=== PATIENT | male | born 1960 | race Caucasian/White ===

== ENCOUNTER 2020-11-10 09:28 | Inpatient (IN) | payer BC ==
--- NOTE | 2020-11-14 13:01 | R.PREADM ---
PRE-ADMISSION SCREENING FORM SCREENING DATE AND TIME 11/10/2020 08:25 (CDT) ANTICIPATED REHAB ADMISSION DATE 11/12/2020 REFERRING FACILITY [facility] REFERRAL DATE AND TIME 11/08/2020 08:27 (CDT) REFERRAL OFFICE PHONE [phone] REFERRAL ROOM# [id number] ACUTE ADMIT DATE 11/11/2020 Previous Rehabilitation(s): No. 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 Pavan Mack M.D. MR# [id number] NAME PORTER KITCHEN ADDRESS [address] [place] [address] [place] [address] PHONE ( ZIP [phone] DATE OF 1960 AGE 60 SSN# [id number] GENDER male MARITAL STATUS PREF. LANGUAGE (IF NON-ST LUCIAN) Bahraini ADMIT FROM 02 - [facility] PRE-HOSPITAL LIVING SETTING 01 - Home (private home/apt. board/care, assisted living, prison, transitional living) HOME TYPE AND DETAILS Type of home: single family house # of levels in the residence: 1 # of steps within the residence: 1 # of steps to enter the residence: 2 PRE-HOSPITAL LIVING WITH Family/Relatives FAMILY SUPPORT Yes PRIMARY FAMILY CONTACT NAME LAURIE KITCHEN PRIMARY FAMILY CONTACT PHONE PRIMARY FAMILY CONTACT RELATIONSHIP Spouse PHONE PRIMARY FAMILY CONTACT ON ADM.? no IS PRIMARY FAMILY CONTACT AUTH. REP.? no 1ST EMERGENCY CONTACT LAURIE KITCHEN 1ST CONTACT PHONE 1ST CONTACT RELATIONSHIP Spouse PHONE 1ST CONTACT ON ADM. no IS 1ST CONTACT AUTH. REP.? no PHONE 2ND CONTACT ON ADM.? 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 No ANOTHER [employer] RESPONSIBLE? No PRIMARY REHAB/ACUTE DIAGNOSIS: LUMBAR PLEXUS,PARAPLEGIA, RADICULOPEXONEUROPATHY ONSET DATE 11/04/2020 REHAB IMPAIRMENT CATEGORY (JOSEPHINE): 05 Nontraumatic spinal cord injury (NTSCI) MEETS 60% rule AFFECTED EXTREMITIES: BLE PRIMARY DIAGNOSIS-RELATED SURGERIES: No surgeries related to the primary diagnosis were performed. RISK FOR COMPLICATIONS: - N/A TRIGEMINAL NEURALGIA WEAKNESS AMBULATION DEFICITS BALANCE DEFICITS BILATERAL LEG PAIN SUMMARY OF ACUTE HOSPITALIZATION: Pt. is a 60 yo Right-handed male. On 11/04/2020 he was admitted to [facility] with diagnosis LUMBAR PLEXUS,PARAPLEGIA, RADICULOPE XONEUROPATHY. His impairment category is Spinal Cord Dysfunction 04 - Paraplegia, Unspecified (04.110). Pre-morbidly, Pt. was independent/mod-I in Safety Awareness, Balance, Transfers Control, and Communic ation; and he had good Endurance and Locomotion. Currently, he has deficits of Locomotion, Social Cognition, Safety Awareness, Balance, Transfers Cont rol, Sphincter Control, Self-Care, and Endurance. Pt. is now referred to [facility] for acute in-patient rehabilitation in order to maximize patient's functional independence in activities of daily living, strength, ROM, and mobi lity. Patient has realistic goal of being discharged at assistance level 7-Ind to reside at Home with Fami ly/Relatives. PAST MEDICAL HISTORY Trigeminal neuralgia (G50.0) BILATERAL LEG PAIN WEAKNESS INABILITY TO WALK MEDICATION ALLERGIES: No Known Drug Allergies (NKDA) ENVIRONMENTAL ALLERGIES: - Substance Allergies None Known - Other Allergies None Known CODE STATUS: Full code WEIGHT/HEIGHT/BMI: WEIGHT 209 lbs HEIGHT 5' 8" BMI 31.8 DIET: - Diet Type Regular - Diet - Solid Texture Regular - Diet - Liquid Texture Regular - Tube Feed N/A REVIEW OF SYSTEMS: - Gen Alert and awake Lying in bed No apparent distress Oriented to: person, time, and place - Vital Signs Temperature: 97.7 F SBP/DBP: 124/77 Pulse: 18 Resp: 93 Vital signs stable, afebrile - CVS RRR VITAL SIGNS Temperature: 97.8F SBP/DBP: 124/77 Pulse: 18 Resp: 93 Vital signs stable, afebrile MEDICATIONS/TREATMENT: Other- See attached MAR (Medication Administration Record). CURRENT SPHINCTER CONTROL: Pre-hospital bladder status: unspecified # of bladder accidents in the last 7 days prior to screenin Pre-hospital bowel status: unspecified # of bowel accidents in the last 7 days prior to screenin Last Bowel Movement Date: 11/10/2020 CURRENT LOCOMOTION STATUS: distance walked 25feet WITH ROLLING WALKER DETAILED CURRENT FUNCTIONAL STATUS: - Bladder accident frequency: 7-Ind - No accidents in the past 7 days - Bowel accident frequency: 7-Ind - No accidents in the past 7 days - Walking score based on distance walked: 0(N/A) - Wheelchair score based on distance traveled: 0(N/A) QI SCORES: - Self-Care A. Eating 06-Independent B. Oral hygiene 04-Supervision or touching assistance C. Toileting hygiene 04-Supervision or touching assistance E. Shower/bathe self 88-Not attempted due to medical condition or safety concerns F. Upper body dressing 03-Partial/moderate assistance G. Lower body dressing 03-Partial/moderate assistance H. Putting on/taking off footwear 88-Not attempted due to medical condition or safety concerns - Mobility A. Roll left and right 04-Supervision or touching assistance B. Sit to lying 03-Partial/moderate assistance C. Lying to sitting on side of bed 03-Partial/moderate assistance D. Sit to stand 03-Partial/moderate assistance E. Chair/[id number] transfer 03-Partial/moderate assistance F. Toilet transfer 03-Partial/moderate assistance G. Car transfer 88-Not attempted due to medical condition or safety concerns I. Walk 10 feet 03-Partial/moderate assistance J. Walk 50 feet with two turns 88-Not attempted due to medical condition or safety concerns K. Walk 150 feet 88-Not attempted due to medical condition or safety concerns L. Walking 10 feet on uneven surfaces 88-Not attempted due to medical condition or safety concerns M. 1 step (curb) 88-Not attempted due to medical condition or safety concerns N. 4 steps 88-Not attempted due to medical condition or safety concerns O. 12 steps 88-Not attempted due to medical condition or safety concerns P. Picking up object 88-Not attempted due to medical condition or safety concerns R. Wheel 50 feet with two turns 88-Not attempted due to medical condition or safety concerns S. Wheel 150 feet 88-Not attempted due to medical condition or safety concerns - Bladder and Bowel Bladder continence Bowel continence - Endurance Fair - Balance Fair - Safety Awareness Fair CURRENT FUNC. DEFICITS: Mobility, Endurance, Balance, Safety Awareness, and Self-Care CURRENT / PREVIOUS ASSISTIVE DEVICES: Rolling Walker HISTORY OF FALLS. HAS THE PATIENT HAD TWO OR MORE FALLS IN THE PAST YEAR OR ANY FALL WITH INJURY IN T HE PAST YEAR?: No PRIOR SURGERY. DID THE PATIENT HAVE MAJOR SURGERY DURING THE 100 DAYS PRIOR TO ADMISSION?: No THERAPY NOTES FROM ACUTE CARE: Attached. SPECIAL NEEDS: - Safety Concerns Skin breakdown precautions needed due to skin breakdown risk PRECAUTIONS: - Weight Bearing Precaution WBAT both LE PATIENT NEEDS ACTIVE AND ONGOING THERAPEUTIC INTERVENTION OF MULTIPLE THERAPY DISCIPLINES, INCLUDING: - Orthotics/Prosthetics Orthotic Evaluation. Splinting/Casting. - Dietary and Nutrition Adequate Nutrition. Nutritional Education. Nutritional Supplements. PATIENT NEEDS CLOSE MEDICAL SUPERVISION BY A REHABILITATION PHYSICIAN FOR: Coordination of Treatment Team PATIENT REQUIRES 24X7 REHAB NURSING FOR MEDICAL AND FUNCTIONAL MGT. OF THE FOLLOWING DEFICITS: Disease Management Medication Management Patient/Family Education Providing Safe Environment PATIENT REQUIRES INTENSIVE, COORDINATED INTERDISCIPLINARY APPROACH TO REHAB: Arranging Home Equipment/Services Discharge Planning Family Intervention/Training Geospatial Imagery Intelligence Analyst/Case Management PATIENT REHAB POTENTIAL: Lita KITCHEN is able and expected to receive 3 hours of individualized therapy daily on at least 5 of ev sun 7 days Lita KITCHEN's prognosis for significant practical improvement within a reasonable period of time appear s Good Expected level of measurable improvement will be of a practical value to Lita KITCHEN's functional capac ity or adaptations to impairments Has a viable Discharge Plan Medically appropriate; condition is sufficiently stable to participate in intensive rehab program DISCHARGE PLAN: - Estimated Length of Stay (days) 16. - Consensus on plan Discharge plan has been discussed with primary caregiver. Patient/Family is in agreement with the calin n. Primary caregiver is in agreement with the plan. - Patient/Family Goals Return home independently. - Planned Living Setting Upon Discharge Home, to live with Family/Relatives. Transitional Living. RECOMMENDED CARE LEVEL: IRF RECOMMENDATION DETAILS: Recommended Admission to Comprehensive Rehabilitation Program to Increase Functional [place] SCREENER'S COMPLETENESS CONFIRMATION: - Screening Confirmation The patient data collection on this preadmission screening form is finished PHYSICIANS REVIEW AND ADMISSION DETERMINATION Admit - Based on my review of the Pre-Admission Screening results, in my medical judgment and experie nce, I concur with the findings and recommend admission to [facility], as this patient requires an IRF level of care. SIGNATURE PANEL: Neurology Technologist - [electronically] signed by Vlad Lopez on 11/11/2020 at 11:04 (CDT) Neurology Technologist - [electronically] signed by Jcarlos Camarena PT on 11/11/2020 at 12:18 (CDT) Physician Reviewer - [electronically] signed by Dr. Pavan Mack M.D. on 11/14/2020 at 12:59 (CDT )
--- OUTSIDE RECORDS SUMMARY | 2020-11-15 03:42 | XMS REPORT | Continuity of Care Document ---
:1960 Author Organization [facility] t Address [address] [place] [address] Care Team Providers Name Role Phone Martin BECKFORD Primary Care Physician IVELISSE Attending Clinician Unavailable Michael GALEANO Attending Clinician Unavailable Tatum PARNELL RAshley Attending Clinician Nadeem Valenzuela MD Attending Clinician Yu Mario NP Attending Clinician MD Rocio WINN Attending Clinician Unavailable Cheryl Lima Attending Clinician Provider Attending Clinician Unavailable Kalyan GALEANO Attending Clinician Unavailable Harman PARNELL Attending Clinician TATUM Admitting Clinician Unavailable YOLIE ROOT Admitting Clinician Unavailable Payers Payer Name Policy Type Policy Effective Date Expiration Date Sour ce Number [employer] [place] [id number] 2018 00:00:00 BCBS[employer]M BLUE [id number] [id number] 00:00:00 Hospital -Presen tPPO Problems Condition Condition Condition Status Onset Resolution Last Treating Co mments Source Name Details Category Date Date Treatment Clinician Date Primary Primary Disease Active Overview: Meth edil osteoarthr osteoarthr 05-[address] [facility] 00:00: g of this Hospi ta left knee left knee 00 note l might be different from the original. Added automatic ally from request for surgery [id number] Osteoarthr Osteoarthr Disease Active M ethodi itis of itis of 12-10 st right knee right knee 00:00: Ho spita 00 l Allergies, Adverse Reactions, Alerts Allergy Allergy Status Severity Reaction(s) Onset Inactive Treating Comm ents Source Name Type Date Date Clinician Fenofibr Propensi Active Itching Metho di ate ty to -13 st Microniz adverse 00:00: Hospita ed reaction 00 l s to drug Family History Family Member Diagnosis Comments Start Date Stop Date Source Natural mother Cancer [facility] Social History Social Habit Start Date Stop Date Quantity Comments Source Tobacco use and 2020-06-22 2020-06-22 Never used [facility] exposure 00:00:00 00:00:00 Hospital Alcohol intake 2020-06-22 2020-06-22 Current [facility] 00:00:00 00:00:00 non-drinker of Hospital alcohol (finding) Sex Ass[birth year] At [birth year] [facility] 00:00:00 00:00:00 Hospital Smoking Status Start Date Stop Date Source Never smoker [facility] Medications Ordered Filled Start Stop Current Ordering Indication Dosage Frequency Signature Comments Components Source Medication Medication Date Date Medication? Clinician (SIG) Name Name tapentado[place] 2020- [place] [id number] 100mg Q6H Take 1 Me thodi (Nucynta) 3-11 03-[address] 100 mg 00:00: 04:59 (100 mg Hospita tablet 00 :00 total) by l mouth every 6 (six) hours as needed for severe pain for up to 7 days .acute pain. Max Daily Amount: 400 mg olmesartan- Yes 1{tbl} QD Take 1 Me thodi hydrochloro 3-[address] thiazide 19:55: mouth Hospita (BENICAR 20 daily. PM l HCT) 40-25 mg per tablet naloxegoL Yes 25mg QD Take 1 Method i (MOVANTIK) 2-24 tablet (25 st 25 mg 00:00: mg total) Hospita tablet 00 by mouth l tablet daily before breakfast. ondansetron Yes 4mg Q8H Take 1 Meth edil (Zofran) 4 -24 tablet (4 st MG tablet 00:00: mg total) Hos buffy 00 by mouth l every 8 (eight) hours as needed for nausea or vomiting. celecoxib 2020- No 200mg Q.5D Take 1 Meth edil (CeleBREX) 06-08-[address] 200 MG 00:00: 04:59 (200 mg Hospita capsule 00 :00 total) by l mouth 2 (two) times a day for 30 days. zolpidem 2020- No 5mg QD Take 1 Method i (AMBIEN) 5 06-08-27 tablet (5 st MG tablet 00:00: 04:59 mg total) Ho spita 00 :00 by mouth l nightly as needed for sleep for up to 30 days. tiZANidine 2020- No 2mg Q8H Take 1 Meth edil (ZANAFLEX) 06-08-27 tablet (2 st 2 MG tablet 00:00: 04:59 mg total) Hospita 00 :00 by mouth l every 8 (eight) hours as needed for muscle spasms for up to 30 days. [place]DROcod[place] 2020- [place] [id number] 1{tbl} Q4H Take 1 Methodi -acetaminop 06-08-[address] hen (NORCO) 00:00: 05:59 mouth Hosp rnea 10-325 mg 00 :00 every 4 l per tablet (four) hours as needed for severe pain for up to 7 days .acute pain. Max Daily Amount: 6 tablets tamsulosin 2019-04 Yes .4mg QD 0.4 mg Metho di (FLOMAX) 0-[address] 0.4 mg 00:00: PM Hospita capsule 00 l carBAMazepi 2019-04 Yes [id number] 1 tab q12 Methodi ne XR [id number] (TEGretol 00:00: Hospita XR) 400 MG 00 l 12 hr tablet carBAMazepi 2019-04 2020- No [id number] 1 tab q12 Methodi ne XR 008 01-[id number] (TEGretol 00:00: 00:00 Hospita XR) 400 MG 00 :00 l 12 hr tablet carBAMazepi 2020- No [id number] 1 tab q12 Methodi ne XR 05-[id number] (TEGretol 00:00: 00:00 Hospita XR) 400 MG 00 :00 l 12 hr tablet Immunizations Ordered Immunization Filled Immunization Date Status Commen ts Source Name Name FRIDA COVID-19 2020-06-15 Com[facility] M[facility] VACCINATION 00:00:00 Hospital Vital Signs Vital Name Observation Time Observation Value Comments Source Systolic blood 2020-06-21 23:15:00 106 mm[Hg] [facility] pressure Diastolic blood 2020-06-21 23:15:00 61 mm[Hg] [facility] pressure Heart rate 2020-06-21 23:15:00 65 /min [facility] Oxygen saturation in 2020-06-21 23:15:00 95 /min [facility] Arterial blood by Pulse oximetry Body temperature 2020-06-21 18:10:00 36.44 Brie [facility] Respiratory rate 2020-06-21 18:10:00 16 /min [facility] Body height 2020-06-21 12:29:00 175.3 cm [facility] Body weight 2020-06-21 12:29:00 99.247 kg [facility] BMI 2020-06-21 12:29:00 32.31 kg/m2 [facility] Procedures Procedure Date / Time Performing Clinician Source Performed XR KNEE 3 VW LEFT 2020-07-14 18:31:25 Reno Winn [facility] SURGICAL PATHOLOGY REQUEST 2020-06-21 14:47:00 [facility] NC AN ELECTIVE SUPRAGLOTTIC 2020-06-21 13:30:00 Anitha Alicia [facility] AIRWAY Jennifer ARTHROPLASTY, KNEE, 2020-06-21 13:15:00 [facility] UNICOMPARTMENTAL ANESTHESIA SPINAL BLOCK 2020-06-21 13:07:00 Neptali Valenzuela [facility] Nadeem COVID-19 QUALITATIVE RT-PCR 2020-06-16 22:00:00 Sotero Root [facility] Cheryl ECG PRE/POST OP 2020-06-16 21:42:08 Perez Uriarte [facility] ospital XR KNEE 1 OR 2 VW LEFT 2020-05-04 17:11:25 [facility] XR KNEE 4+ VW BILATERAL 2020-05-04 16:36:10 [facility] Plan of Care Planned Activity Planned Date Details Comments Source Future Scheduled Test Hepatitis C screening [facility] (procedure) [code = 946122609] Future Scheduled Test COLONOSCOPY SCREENING [facility] [code = COLONOSCOPY SCREENING] Future Scheduled Test SHINGLES VACCINES (#1) [facility] [code = SHINGLES VACCINES (#1)] Future Scheduled Test COVID-19 VACCINE ( - [facility] Moderna 2-dose series) [code = COVID-19 VACCINE (2 - [facility])] Future Scheduled Test INFLUENZA VACCINE [code [facility] = INFLUENZA VACCINE] Encounters Start End Encounter Admission Attending Care Care Encounter Source Date/Time Date/Time Type Type Clinicians Facility Department ID 2020-11-04 Inpatient U [facility] [address] [facility] 11:12:00 2020-11-02 [id number] [place] 09:33:42 [facility] 2020-10-26 [facility] [id number] [place] 08:53:43 [facility] 2020-11-02 2020-11-02 Office LAKHWINDER Hernandez 6400 1.2.978.536 [id number] 09:33:29 15:28:15 Visit Sharad MESSER 350.1.13.58 9.2.7.2.686 [id number] 2020-08-12 2020-08-12 Orders Rodriguez, 1.2.840.1 [id number] Methodi 00:00:00 00:00:00 Only Claudine [address]957.1.[address] 3.430.2.7 Hospit a .3.818043 l .8 2020-07-14 2020-07-14 [facility] 1.2.840.1 [id number] 21 [id number] Methodi 13:20:45 14:04:45 Visit Reno Figueroa50.1.[address] 3.430.2.7 Hospit a .3.904339 l .8 2020-07-14 2020-07-14 Outpatient [facility] 485 [id number] [place] 00:00:00 00:00:00 [place] [address] 2020-07-14 2020-07-14 [facility] 1.2.840.1 1.2.550.855 [id number] Methodi 00:00:00 00:00:[address] 3.430.2.7 0.2.7.3.698 Ho spita .3.082962 084.8 l .8 2020-07-14 2020-07-14 Outpatient [facility] 112 [id number] [place] 00:00:00 00:00:00 [place] [address] 2020-06-23 2020-06-23 [place], 1.2.840.1 [id number] Methodi 00:00:00 00:00:00 Only [place] Chan 28167.1.[address] 3.430.2.7 Hospit a .3.777404 l .8 2020-06-21 2020-06-21 [facility] 1.2.840.1 [id number] 2 [id number] Methodi 06:11:00 13:23:00 Encounter Reno Chan 98653.1.1 579 [address] t 3.430.2.7 Hospit a .3.923438 l .8 2020-06-21 2020-06-21 Surgery Tatum, 1.2.840.1 [id number] 21 [id number] Methodi 07:15:00 09:30:[address] [place] [address] 3.430.2.7 Hospit a .3.213610 l .8 2020-06-21 2020-06-21 Anesthesia Neptali Valenzuela 1.2.840 .1 [id number] Methodi 07:15:00 08:51:00 Event Darlene Mario 68984.1.[address] 3.430.2.7 Hospit a .3.624687 l .8 2020-06-21 2020-06-21 Travel 1.2.840.1 1.2.040.432 0967 [id number] Methodi 00:00:00 00:00:[address] 3.430.2.7 0.2.7.3.698 Ho spita .3.872396 084.8 l .8 2020-06-21 2020-06-21 Outpatient [facility] 021 [id number] [place] 00:00:00 00:00:00 [place] [address] 2020-06-16 2020-06-16 Pre-Admiss Tatum, 1.2.840.1 [id number] Methodi 15:04:23 16:04:23 ion Reno Chan 91893.1.[address] Testing 3.430.2.7 Hospit a .3.684224 l .8 2020-06-16 2020-06-16 [facility] 585 [id number] [place] 00:00:00 00:00:00 [place] [address] 2020-06-16 2020-06-16 Travel 1.2.840.1 1.2.241.758 2323 [id number] Methodi 00:00:00 00:00:[address] 3.430.2.7 0.2.7.3.698 Ho spita .3.611744 084.8 l .8 2020-06-10 2020-06-10 Orders Schriner, 1.2.840.1 [id number] [id number] Methodi 00:00:00 00:00:00 Only Leana 77422.1.[address] Cheryl 3.430.2.7 Hosp rena .3.661472 l .8 2020-06-08 2020-06-08 Office Schriner, 1.2.840.1 [id number] 2099 [id number] Methodi 13:58:59 15:27:04 Visit Leana 99116.1.[address] Cheryl 3.430.2.7 Hosp rena .3.130464 l .8 2020-06-08 2020-06-08 Outpatient [facility] 741 [id number] [place] 00:00:00 00:00:00 [place] [address] 2020-06-08 2020-06-08 Outpatient [facility] [id number] 265 [place] 00:00:00 00:00:[address] 2020-06-08 2020-06-08 Travel 1.2.840.1 1.2.214.168 [id number] [id number] Methodi 00:00:00 00:00:[address] 3.430.2.7 0.2.7.3.698 Ho spita .3.611306 084.8 l .8 2020-05-16 2020-05-16 Prep for Schriner, 1.2.840.1 [id number] Methodi 00:00:00 00:00:00 Surgery Leana 86028.1.[address] Cheryl 3.430.2.7 Hosp rena .3.430841 l .8 2020-05-10 2020-05-10 Documentat Provider, 1.2.840.1 [id number] 2 [id number] Methodi 00:00:00 00:00:00 ion Unknown 05923.1.[address] 3.430.2.7 Hospit a .3.925777 l .8 2020-05-10 2020-05-10 Orders Rodriguez, 1.2.840.1 [id number] 09520 Methodi 00:00:00 00:00:00 Only Claudine 86432.1.[address] 3.430.2.7 Hospit a .3.211346 l .8 2020-05-04 2020-05-04 Office Patricaaman, 1.2.840.1 [id number] Methodi 10:12:27 12:33:12 Visit Reno CésarAshley 49635.1.[address] 3.430.2.7 Hospit a .3.611740 l .8 2020-05-04 2020-05-04 Outpatient [facility] 271 [id number] [place] 00:00:00 00:00:00 [place] [address] 2020-05-04 2020-05-04 Outpatient [facility] 672 [id number] [place] 00:00:00 00:00:00 [place] [address] 2020-05-04 2020-05-04 Outpatient [facility] 616 [id number] [place] 00:00:00 00:00:00 [place] [address] 2020-05-04 2020-05-04 Travel 1.2.840.1 1.2.827.869 2042 [id number] Methodi 00:00:00 00:00:[address] 3.430.2.7 0.2.7.3.698 spita .3.479882 084.8 l .8 2020-02-11 2020-02-11 Orders Biggs, 1.2.840.1 [id number] Methodi 00:00:00 00:00:00 Only Daisha 46485.1.[address] 3.430.2.7 Hospit a .3.496559 l .8 2020-01-21 2020-01-21 Office Papi Epps 1.2.840.1 [id number] Methodi 13:29:36 14:07:[address] 3.430.2.7 Hospit a .3.068767 l .8 2020-01-21 2020-01-21 Outpatient PAPI EPPS [facility] 835 [id number] [place] 00:00:00 00:00:[address] 2020-01-21 2020-01-21 Travel 1.2.840.1 1.2.708.611 3146 [id number] Methodi 00:00:00 00:00:[address] 3.430.2.7 0.2.7.3.698 Ho spita .3.370921 084.8 l .8 Results Test Description Test Time Test Comments Results Result Comments Source Surgical pathology request 2020-06-24 16:08:47 Test Item Value Reference Range Interpretation Comme nts Case number (test code = 9458178) [id number] Surgical pathology report (test code = See link below for PDF Lab R eport 2250) Result status (test code = 3401554) This is Final Report for [id number] 7289-3 [facility] [id number] 13:30:00Anitha Alicia 06/21/2020 7:57 AMAirway Date/Time: 06/21/2020 7:30 AM Location: OR Performed by: SUPERVISOR BLASTING/Nisha/SUPERVISOR BLASTING/AA: Anitha Aliciauthorized by: Neptali Valenzuela MD Urgency: ElectiveDifficult Airway: No Preoxygenated with 100% O2: Yes C-spine Precautions Maintained Throughout: Yes Mask Ventilation: Easy maskFinal Airway Type: Supraglottic airwayFinal LMA: I-GelLMA Size: 5Number of Attempts at Approach: 1 atraumaticMethodist HospitalSpinal [id number] 13:07:00Neptali Valenzuela MD 06/21/2020 7:09 AMSpinal Block Date/Time: 06/21/2020 7:07 AM Patient Location: Pre-opStart Time: 06/21/2020 7:05 AMEnd Time: 06/21/2020 7:07 AMReason for Block: at surgeon'srequest Performed by: anesthesiologistAnesthesiologist: Neptali Valenzuela MDAuthorized by: Neptali Valenzuela MD Preprocedure: patient identified, IV checked, site and side verified, risks and benefits discussed, procedure verified, surgical consent complete, patient position confirmed, monitors and equipment checked, pre-op evaluation complete and timeout performed prior to procedure Spinal Block: Patient Position: Sitting Prep: Betadine and patient draped Monitoring: Blood pressure monitoring, continuous pulse oximetry and heart rate Approach: Midline Interspace: L2-3Injection Technique: Single injectionNeedle: Needle Type: Quincke Needle Gauge: 22 GNumber ofattempts: 1Assessment: Block assessment: No apparent complications and patient tolerated procedure well Post procedure: Patient returned to supine positionMedications AdministeredBupivacaine 0.75% PF (mL), 1 mLMethodist HospitalCOVID-19 qualitative [id number] 06:51:42 Test Item Value Reference Range Interpretation Comments Interpretation (test code = 9282595) COVID-19 qualitative RT-PCR Not-Detected Not-Detected result (test code = 06873-7) COVID-19 qualitative RT-PCR See link below for (test code = 7070) PDF [facility] Report [facility] RNA [Presence] in Respiratory specimen by HENRIQUE with probe [id number] 00:51:15 Test Item Value Reference Range Interpretation Comments SARS-CoV-2 (COVID-19) RNA Not detected Not-Detected [Presence] in Respiratory specimen by HENRIQUE with probe detection (test code = 74511-5) ECG Pre/Post [id number] 22:30:41 Test Item Value Reference Range Interpretation Comments Ventricular rate (test code = 253) Atrial rate (test code = 255) NC interval (test code = 266) QRSD interval (test code = 260) QT interval (test code = 264) QTC interval (test code = 265) P axis 1 (test code = 267) QRS axis 1 (test code = 268) T wave axis (test code = 270) EKG impression (test code Normal sinus = 273) rhythm-Electronicall y Signed By Orville Lanier MD ([id number]) on 06/16/2020 4:30:37 PM [facility]
[2020-11-15 03:58] VITALS: BMI 31.7
[2020-11-15] MEDS ORDERED: ACETAMINOPHEN 325 MG TABLET PO PRN (04:03)
[2020-11-15] MEDS: TRAMADOL HCL 50 MG TAB PO PRN ×3 (04:10→18:51)
[2020-11-15] MEDS ORDERED: BISACODYL 10 MG RECTAL SUPP PR PRN (05:00)
[2020-11-15] MEDS ORDERED: DOCUSATE NA/SENNA CONC 1 TAB PO PRN (05:00)
[2020-11-15 05:51] LABS: Urine Appearance CLEAR (Clear); Urine Bilirubin NEGATIVE (Negative); Urine Blood NEGATIVE (Negative); Urine Color YELLOW (Yellow); Urine Glucose NEGATIVE (Negative); Urine Protein NEGATIVE (Negative)
[2020-11-15] MEDS: HEPARIN 5000 UNIT/ML 1 ML VIAL SQ SCH ×2 (06:11→18:23)
[2020-11-15 06:21] LABS: Urine Bacteria NONE SEEN /HPF (NONE SEEN); Urine RBC NONE SEEN /HPF (NONE SEEN)
[2020-11-15] MEDS: PANTOPRAZOLE 40MG TABLET PO SCH (06:33)
[2020-11-15 07:30] LABS: Albumin 3.5 g/dL (3.4-5.0); BUN Blood Urea Nitrogen 14 mg/dL (7-18); Bicarbonate 28 mmol/L (21-32); Glucose Level 89 mg/dL (74-106); Magnesium 2.3 mg/dL (1.8-2.4); Potassium 4.2 mmol/L (3.5-5.1); Prealbumin 28.2 mg/dL (20-40); Sodium Level 138 mmol/L (136-145)
[2020-11-15 07:37] LABS: Absolute Lymphocytes (CBC) 3.2 K/uL (0.7-4.9); Basophils % 0.4 % (0-1.3); Hematocrit 40.3 % (39.6-49.0); MPV 7.6 fL (7.6-11.3); RBC Red Blood Cell Count 4.82 M/uL (4.33-5.43)
[2020-11-15] MEDS: VALSARTAN 80 MG TAB PO SCH (08:10)
[2020-11-15] MEDS: CYCLOBENZAPRINE 10 MG TAB PO PRN ×2 (08:10→17:51)
[2020-11-15] MEDS: TAMSULOSIN 0.4 MG SR CAP PO SCH (08:11)
[2020-11-15] MEDS: ASPIRIN 81 MG CHEWABLE TABLET PO SCH (08:11)
[2020-11-15] MEDS: GABAPENTIN 300 MG CAP PO SCH ×2 (08:11→16:53)
[2020-11-15] MEDS: carBAMazepine 200 MG TAB PO SCH ×2 (09:49→18:51)
[2020-11-15] MEDS: HYDROCODONE/APAP 10/325 TAB PO PRN (19:29)
--- NOTE | 2020-11-15 21:05 | R.HP ---
HISTORY AND PHYSICAL FACILITY: [facility] ENCOUNTER DATE AND TIME: 11/15/2020 21:02 (CDT) MR#: [id number] NAME PORTER KITCHEN ADDRESS: [address] [place] [address] CITY: [facility] [place]IP [id number] PHONE: ( DATE OF : 1960 AGE: 60 SSN# [id number] GENDER: Male MARITAL STATUS PRE-HOSPITAL LIVING SETTING 01 - Home (private home/apt. board/care, assisted living, alf, transitional living) PRE-HOSPITAL LIVING WITH Family/Relatives ENCOUNTER PHYSICIAN: Dr. Donnell Tabares REFERRING DOCTOR: miller Travis DATE OF ADMISSION: 11/15/2020 03:38 (CDT) REFERRING FACILITY [facility] HOME TYPE AND DETAILS: Type of home: single family house # of levels in the residence: 1 # of steps within the residence: 1 # of steps to enter the residence: 2 ADMISSION DIAGNOSIS: LUMBAR PLEXUS,PARAPLEGIA, RADICULOPEXONEUROPATHY ONSET DATE: 11/04/2020 PRIMARY DIAGNOSIS-RELATED SURGERIES: No surgeries related to the primary diagnosis were performed. HISTORY OF PRESENT ILLNESS (HPI): Pt. is a 60 yo Right-handed male. On 11/04/2020 he was admitted to [facility] with diagnosis LUMBAR PLEXUS,PARAPLEGIA, RADICULOPE XONEUROPATHY. His impairment category is Spinal Cord Dysfunction 04 - Paraplegia, Unspecified (04.110). Pre-morbidly, Pt. was independent/mod-I in Safety Awareness, Balance, Transfers Control, and Communic ation; and he had good Endurance and Locomotion. Currently, he has deficits of Locomotion, Social Cognition, Safety Awareness, Balance, Transfers Cont rol, Sphincter Control, Self-Care, and Endurance. Pt. is now referred to [facility] for acute in-patient rehabilitation in order to maximize patient's functional independence in activities of daily living, strength, ROM, and mobi lity. Patient has realistic goal of being discharged at assistance level 7-Ind to reside at Home with Fami ly/Relatives. MEDICATION ALLERGIES: No Known Drug Allergies (NKDA) ENVIRONMENTAL ALLERGIES: - Substance Allergies None Known - Other Allergies None Known PAST MEDICAL HISTORY: Trigeminal neuralgia (G50.0) BILATERAL LEG PAIN WEAKNESS INABILITY TO WALK SOCIAL HISTORY: - Home Living Family/Relatives REVIEW OF SYSTEMS: - Gen No Chills No Fatigue No Fever - Eyes No Double Vision No itchiness - ENMT No Difficulty Swallowing - CVS No Chest Discomfort No Chest Pain No Fatigue No Weight Gain - Resp No Cough No Shortness of Breath - GI Continent No Abdominal Pain No Constipation No Diarrhea - Continent No Kidney Pain No Painful Urination No Urinary Urgency - MSK No Joint Pain No Muscle Cramps No Stiffness - Skin No Itching No Rash No Suspicious Lesions - Neuro No Coordination Difficulty No Difficulty with Concentration No Memory Loss No Seizures No Weakness - Psych No Anxiety No Depression No HIV Exposure No Persistent Infections No Seasonal Allergies - Endo No Cold/Heat Intolerance No Excessive Hunger No Excessive Thirst No Excessive Urination PHYSICAL EXAM - Gen Alert and awake Lying in bed No apparent distress Oriented to: person, time, and place - Vital Signs Temperature: 97.7 F SBP/DBP: 124/77 Pulse: 18 Resp: 93 Vital signs stable, afebrile - CVS RRR VITAL SIGNS Temperature: 97.8F SBP/DBP: 124/77 Pulse: 18 Resp: 93 Vital signs stable, afebrile NURSING: - Shower allowing shower - Bladder care per protocol - Skin care per protocol PRECAUTIONS: - Weight Bearing Precaution WBAT both LE ACTIVITIES OOB only with supervision QI SCORES: - Self-Care A. Eating 06-Independent B. Oral hygiene 04-Supervision or touching assistance C. Toileting hygiene 04-Supervision or touching assistance E. Shower/bathe self 88-Not attempted due to medical condition or safety concerns F. Upper body dressing 03-Partial/moderate assistance G. Lower body dressing 03-Partial/moderate assistance H. Putting on/taking off footwear 88-Not attempted due to medical condition or safety concerns - Mobility A. Roll left and right 04-Supervision or touching assistance B. Sit to lying 03-Partial/moderate assistance C. Lying to sitting on side of bed 03-Partial/moderate assistance D. Sit to stand 03-Partial/moderate assistance E. Chair/[id number] transfer 03-Partial/moderate assistance F. Toilet transfer 03-Partial/moderate assistance G. Car transfer 88-Not attempted due to medical condition or safety concerns I. Walk 10 feet 03-Partial/moderate assistance J. Walk 50 feet with two turns 88-Not attempted due to medical condition or safety concerns K. Walk 150 feet 88-Not attempted due to medical condition or safety concerns L. Walking 10 feet on uneven surfaces 88-Not attempted due to medical condition or safety concerns M. 1 step (curb) 88-Not attempted due to medical condition or safety concerns N. 4 steps 88-Not attempted due to medical condition or safety concerns O. 12 steps 88-Not attempted due to medical condition or safety concerns P. Picking up object 88-Not attempted due to medical condition or safety concerns R. Wheel 50 feet with two turns 88-Not attempted due to medical condition or safety concerns S. Wheel 150 feet 88-Not attempted due to medical condition or safety concerns - Bladder and Bowel Bladder continence Bowel continence - Endurance Fair - Balance Fair - Safety Awareness Fair CURRENT FUNC. DEFICITS: Mobility, Endurance, Balance, Safety Awareness, and Self-Care MEDICATIONS: - Other See attached MAR (Medication Administration Record) ASSESSMENT: Pt. is a 60 yo Right-handed male.On 11/04/2020 he was admitted to [facility] with diagnosis LUM BAR PLEXUS,PARAPLEGIA, RADICULOPEXONEUROPATHY.His impairment category is Spinal Cord Dysfunction 04 - Paraplegia, Unspecified (04.110).Pre-morbidly, Pt. was independent/mod-I in Safety Awareness, Cassie ce, Transfers Control, and Communication; and he had good Endurance and Locomotion.Currently, he has deficits of Locomotion, Social Cognition, Safety Awareness, Balance, Transfers Control, Sphincter Con trol, Self-Care, and Endurance.Pt. is now referred to [facility] for acute in- patient rehabilitation in order to maximize patient's functional independence in activities of daily living, strength, ROM, and mobility.- Rehab Goal Patient has realistic goal of being discharged at assistance level 7-Ind to reside at Home with Fami ly/Relatives. - Physical Therapy Gait dysfunction - to improve, our physical therapists will perform initial evaluation of pt's status upon admission and devise an individualized program for Gait Training, and Wheel Chair mobility Inability to transfer - to improve, our physical therapists will perform initial evaluation of pt's s tatus upon admission and devise an individualized program for Bed mobility Need for home safety evaluation - to improve, our physical therapists will perform initial evaluation of pt's status upon admission and devise an individualized program for Home Evaluation Need in caregiver upon discharge - to improve, our physical therapists will perform initial evaluatio n of pt's status upon admission and devise an individualized program for Caregiver Training New precaution - to improve, our physical therapists will perform initial evaluation of pt's status u brittani admission and devise an individualized program for Patient precaution education Poor balance - to improve, our physical therapists will perform initial evaluation of pt's status upo n admission and devise an individualized program for Balance Training Poor endurance - to improve, our physical therapists will perform initial evaluation of pt's status u brittani admission and devise an individualized program for Endurance Training Weakness - to improve, our physical therapists will perform initial evaluation of pt's status upon ad mission and devise an individualized program for Aquatic Therapy, Neuromuscular Reeducation, and Stre ngthening Achieving independence - to improve, our physical therapists will perform initial evaluation of pt's status upon admission and devise an individualized program for Community Reintegration Activities - Occupational Therapy ADL deficits - to improve, our occupation therapists will perform initial evaluation of pt's status u brittani admission and devise an individualized program for Bathing, Bed mobility, Community Reintegration , Cooking, Dressing, Eating, Fine Motor Skills, Grooming, Homemaking, Kitchen Mobility, Laundry, Zuleyma ent Education, Safety Awareness, Splinting - Positioning, Transfers(Toilet, Tub, Shower), and Wheel C hair Management Cognitive deficits - to improve, our occupation therapists will perform initial evaluation of pt's st atus upon admission and devise an individualized program for Cognition - orientation Need for animal care provider - to improve, our occupation therapists will perform initial evaluation of pt's s tatus upon admission and devise an individualized program for Caregiver Training Weakness - to improve, our occupation therapists will perform initial evaluation of pt's status upon admission and devise an individualized program for Aquatic Therapy, Balance, Endurance, UE ROM, and U E strengthening MEDICAL PLAN: - Diet Type Start Regular - Diet - Liquid Texture Start Regular - Tube Feed Start N/A - Bladder care per protocol - Weight Bearing Precaution WBAT both LE - Skin care per protocol - Other See attached MAR (Medication Administration Record) - Diet - Solid Texture Regular - Shower shower DISCHARGE PLAN: - Estimated Length of Stay (days) 16. - Consensus on plan Discharge plan has been discussed with primary caregiver. Patient/Family is in agreement with the calin n. Primary caregiver is in agreement with the plan. - Patient/Family Goals Return home independently. - Planned Living Setting Upon Discharge Home, to live with Family/Relatives. Transitional Living. SIGNATURE PANEL: (CDT)
[2020-11-16] MEDS: GABAPENTIN 300 MG CAP PO SCH ×3 (00:14→16:59)
[2020-11-16] MEDS: HYDROCODONE/APAP 10/325 TAB PO PRN ×5 (00:50→22:56)
[2020-11-16] MEDS: TRAMADOL HCL 50 MG TAB PO PRN ×2 (04:25→21:39)
[2020-11-16] MEDS: PANTOPRAZOLE 40MG TABLET PO SCH (06:17)
[2020-11-16] MEDS: HEPARIN 5000 UNIT/ML 1 ML VIAL SQ SCH ×2 (06:21→21:45)
[2020-11-16] MEDS ORDERED: LIDOCAINE 4% PATCH TOP SCH (08:00)
[2020-11-16] MEDS: VALSARTAN 80 MG TAB PO SCH (08:24)
[2020-11-16] MEDS: carBAMazepine 200 MG TAB PO SCH ×2 (08:24→21:28)
[2020-11-16] MEDS: TAMSULOSIN 0.4 MG SR CAP PO SCH (08:24)
[2020-11-16] MEDS: ASPIRIN 81 MG CHEWABLE TABLET PO SCH (08:24)
[2020-11-16] MEDS: CYCLOBENZAPRINE 10 MG TAB PO PRN (12:50)
[2020-11-16] MEDS ORDERED: POLYETHYL GLY 3350 17 GM/DOSE PO PRN (16:14)
[2020-11-16] MEDS ORDERED: DOCUSATE NA/SENNA CONC 1 TAB PO SCH (21:00)
[2020-11-16 21:17] VITALS: BP 137/88; TEMP 97.9
[2020-11-16] MEDS ORDERED: MORPHINE 4 MG/ML SYR IM ONE (23:44)
[2020-11-17] MEDS ORDERED: MORPHINE 4 MG/ML SYR ONE (00:16)
== END 2020-11-17 00:26 | disposition home or self-care (01) | DRG 74 ==
LOC: 5TH 11-15 03:38
PROVIDERS: ADMIT Psychiatry & Neurology Neurology with Special Qualifications in Child Neurology; ATTEND Psychiatry & Neurology Neurology with Special Qualifications in Child Neurology
DX: G54.1 Lumbosacral plexus disorders (principal); G82.20 Paraplegia, unspecified
CPT/HCPCS: 36415; 80048; 81001; 82040; 83735; 84134; 85025; 87086; 87088; 97110; 97116; 97161; 97530; J1644; U0003

== ENCOUNTER 2020-12-27 14:26 | Emergency (ER) | payer BC ==
--- OUTSIDE RECORDS SUMMARY | 2020-12-27 14:40 | XMS REPORT | Continuity of Care Document ---
:1960 Author Organization [facility] t Address [address] [place] [address] Care Team Providers Name Role Phone Martin BECKFORD Primary Care Physician SYSTEM, NOT IN Attending Clinician Unavailable IVELISSE Attending Clinician Unavailable Kalyan GALEANO Attending Clinician Unavailable Michael GALEANO Attending Clinician Unavailable Tatum PARNELL, Rocio Attending Clinician Nadeem Valenzuela MD Attending Clinician Yu Mario NP Attending Clinician Cheryl Lima Attending Clinician Provider Attending Clinician Unavailable Haramn PARNELL Attending Clinician TATUM Admitting Clinician Unavailable Payers Payer Name Policy Type Policy Number Effective Date Expiration Date S josephine [facility] [id number] 2018 00:00:00 Problems Condition Condition Condition Status Onset Resolution Last Treating Co mments Source Name Details Category Date Date Treatment Clinician Date Primary Primary Disease Active Overview: Meth edil osteoarthr osteoarthr [address] itis of itis of 00:00: g of this Hospi ta left knee left knee 00 note l might be different from the original. Added automatic ally from request for surgery [id number] Osteoarthr Osteoarthr Disease Active M ethodi itis of itis of 12-10 st right knee right knee 00:00: Ho spita 00 l Allergies, Adverse Reactions, Alerts Allergy Allergy Status Severity Reaction(s) Onset Inactive Treating Comm ents Source Name Type Date Date Clinician Fenofibr Propensi Active Itching Metho di ate ty to 4-13 st Microniz adverse 00:00: Hospita ed reaction 00 l s to drug Family History Family Member Diagnosis Comments Start Date Stop Date Source Natural mother Cancer [facility] Social History Social Habit Start Date Stop Date Quantity Comments Source Tobacco use and 2020-06-22 2020-06-22 Never used [facility] exposure 00:00:00 00:00:00 Hospital Alcohol intake 2020-06-22 2020-06-22 Current [facility] 00:00:00 00:00:00 non-drinker of Hospital alcohol (finding) Sex Ass[birth year] At [birth year] [facility] 00:00:00 00:00:00 Hospital Smoking Status Start Date Stop Date Source Never smoker [facility] Medications Ordered Filled Start Stop Current Ordering Indication Dosage Frequency Signature Comments Components Source Medication Medication Date Date Medication? Clinician (SIG) Name Name carBAMazepi Yes [id number] 400mg Q.5D Take 1 Methodi ne XR 9-[id number] (TEGretol 00:00: (400 mg Hospi ta XR) 400 MG 00 total) by l 12 hr mouth 2 tablet (two) times a day. 1 tab q12 PM carBAMazepi 2020-0 Yes [id number] 400mg Q.5D Take 1 Methodi ne XR 9-[id number] (TEGretol 00:00: (400 mg Hospi ta XR) 400 MG 00 total) by l 12 hr mouth 2 tablet (two) times a day. 1 tab q12 PM tapentadoL 2020-0 2020- [place] [id number] 100mg Q6H Take 1 Me thodi (Nucynta) 3-11 -[address] 100 mg 00:00: 04:59 (100 mg Hospita tablet 00 :00 total) by l mouth every 6 (six) hours as needed for severe pain for up to 7 days .acute pain. Max Daily Amount: 400 mg tapentadoL 2020-0 2020- No [id number] 100mg Q6H Take 1 Me thodi (Nucynta) 3-11 -[address] 100 mg 00:00: 04:59 (100 mg Hospita tablet 00 :00 total) by l mouth every 6 (six) hours as needed for severe pain for up to 7 days .acute pain. Max Daily Amount: 400 mg olmesartan- 2020-0 Yes 1{tbl} QD Take 1 Me thodi hydrochloro 3-[address] thiazide 19:55: mouth Hospita (BENICAR 20 daily. PM l HCT) 40-25 mg per tablet olmesartan- 2020-0 Yes 1{tbl} QD Take 1 Me thodi hydrochloro 3-[address] thiazide 19:55: mouth Hospita (BENICAR 20 daily. PM l HCT) 40-25 mg per tablet naloxegoL 2020-0 Yes 25mg QD Take 1 Method i (MOVANTIK) 2-24 tablet (25 st 25 mg 00:00: mg total) Hospita tablet 00 by mouth l tablet daily before breakfast. ondansetron 2020-0 Yes 4mg Q8H Take 1 Meth edil (Zofran) 4 2-24 tablet (4 st MG tablet 00:00: mg total) Hos buffy 00 by mouth l every 8 (eight) hours as needed for nausea or vomiting. naloxegoL 2020-0 Yes 25mg QD Take 1 Method i (MOVANTIK) 2-24 tablet (25 st 25 mg 00:00: mg total) Hospita tablet 00 by mouth l tablet daily before breakfast. ondansetron Yes 4mg Q8H Take 1 Meth edil (Zofran) 4 2-24 tablet (4 st MG tablet 00:00: mg total) Hos buffy 00 by mouth l every 8 (eight) hours as needed for nausea or vomiting. celecoxib 2020- No 200mg Q.5D Take 1 Meth edil (CeleBREX) 06-08- capsule st 200 MG 00:00: 04:59 (200 mg Hospita capsule 00 :00 total) by l mouth 2 (two) times a day for 30 days. zolpidem 2020-2020- No 5mg QD Take 1 Method i (AMBIEN) 5 06-08- tablet (5 st MG tablet 00:00: 04:59 mg total) Ho spita 00 :00 by mouth l nightly as needed for sleep for up to 30 days. tiZANidine 2020- No 2mg Q8H Take 1 Meth edil (ZANAFLEX) 06-08- tablet (2 st 2 MG tablet 00:00: 04:59 mg total) Hospita 00 :00 by mouth l every 8 (eight) hours as needed for muscle spasms for up to 30 days. celecoxib 2020- No 200mg Q.5D Take 1 Meth edil (CeleBREX) 06-08- capsule st 200 MG 00:00: 04:59 (200 mg Hospita capsule 00 :00 total) by l mouth 2 (two) times a day for 30 days. zolpidem 2020-2020- No 5mg QD Take 1 Method i (AMBIEN) 5 06-08- tablet (5 st MG tablet 00:00: 04:59 mg total) Ho spita 00 :00 by mouth l nightly as needed for sleep for up to 30 days. tiZANidine 2020-0 2020- No 2mg Q8H Take 1 Meth edil (ZANAFLEX) 06-08- tablet (2 st 2 MG tablet 00:00: 04:59 mg total) Hospita 00 :00 by mouth l every 8 (eight) hours as needed for muscle spasms for up to 30 days. [place] 2020- [place] [id number] 1{tbl} Q4H Take 1 Methodi -acetaminop 2-06 07-[address] anatoly ([employer]) 00:00: 05:59 mouth Hosp rena 10-325 mg 00 :00 every 4 l per tablet (four) hours as needed for severe pain for up to 7 days .acute pain. Max Daily Amount: 6 tablets HYDROcodone 2020- No [id number] 1{tbl} Q4H Take 1 Methodi -acetaminop 2-24 - tablet by st hen ([employer]) 00:00: 05:59 mouth Hosp rena 10-325 mg 00 :00 every 4 l per tablet (four) hours as needed for severe pain for up to 7 days .acute pain. Max Daily Amount: 6 tablets tamsulosin 2019-04 Yes .4mg QD 0.4 mg Metho di (FLOMAX) 0-[address] 0.4 mg 00:00: PM Hospita capsule 00 l tamsulosin 2019-04 Yes .4mg QD 0.4 mg Metho di (FLOMAX) 0-[address] 0.4 mg 00:00: PM Hospita capsule 00 l carBAMazepi 2019-04- No [id number] 1 tab q12 Methodi ne XR 12-[address] (TEGretol 00:00: 00:00 Hospita XR) 400 MG 00 :00 l 12 hr tablet carBAMazepi 2019-04- No [id number] 1 tab q12 Methodi ne XR 12-[address] (TEGretol 00:00: 00:00 Hospita XR) 400 MG 00 :00 l 12 hr tablet carBAMazepi 2019-04- No [id number] 1 tab q12 Methodi ne XR 001-[address] (TEGretol 00:00: 00:00 Hospita XR) 400 MG 00 :00 l 12 hr tablet carBAMazepi 2019-04- No [id number] 1 tab q12 Methodi ne XR 01-[address] (TEGretol 00:00: 00:00 Hospita XR) 400 MG 00 :00 l 12 hr tablet carBAMazepi 2019- No [id number] 1 tab q12 Methodi ne XR 05-[address] (TEGretol 00:00: 00:00 Hospita XR) 400 MG 00 :00 l 12 hr tablet carBAMazepi 2020- No [id number] 1 tab q12 Methodi ne XR 05-[address] (TEGretol 00:00: 00:00 Hospita XR) 400 MG 00 :00 l 12 hr tablet Immunizations Ordered Immunization Filled Immunization Date Status Commen ts Source Name Name [place] [address] 2020-06-15 Completed Methodis t MRNA VACCINATION 00:00:00 [place] [address] 2020-06-15 Completed Methodis MRNA VACCINATION 00:00:00 Hospital Vital Signs Vital Name Observation Time Observation Value Comments Source Systolic blood 2020-06-21 23:15:00 106 mm[Hg] [facility] pressure Diastolic blood 2020-06-21 23:15:00 61 mm[Hg] [facility] pressure Heart rate 2020-06-21 23:15:00 65 /min [facility] Oxygen saturation in 2020-06-21 23:15:00 95 /min [facility] Arterial blood by Pulse oximetry Body temperature 2020-06-21 18:10:00 36.44 Brie [facility] Respiratory rate 2020-06-21 18:10:00 16 /min [facility] Body height 2020-06-21 12:29:00 175.3 cm [facility] Body weight 2020-06-21 12:29:00 99.247 kg [facility] BMI 2020-06-21 12:29:00 32.31 kg/m2 [facility] Procedures Procedure Date / Time Performing Clinician Source Performed XR KNEE 3 VW LEFT 2020-07-14 18:31:25 GavinarcadiaGael [facility] SURGICAL PATHOLOGY REQUEST 2020-06-21 14:47:00 GavinarcadiaGael [facility] MN AN ELECTIVE SUPRAGLOTTIC 2020-06-21 13:30:[address] [facility] AIRWAY Jennifer ARTHROPLASTY, KNEE, 2020-06-21 13:15:[address] [facility] UNICOMPARTMENTAL ANESTHESIA SPINAL BLOCK 2020-06-21 13:07:00 Neptali Valenzuela [facility] Nadeem COVID-19 QUALITATIVE RT-PCR 2020-06-16 22:00:[address] [facility] Cheryl ECG PRE/POST OP 2020-06-16 21:42:[address] [facility] ospital XR KNEE 1 OR 2 VW LEFT 2020-05-04 17:11:25 [facility] XR KNEE 4+ VW BILATERAL 2020-05-04 16:36:10 [facility] Plan of Care Planned Activity Planned Date Details Comments Source Future Scheduled Test Hepatitis C screening [facility] (procedure) [code = 027687675] Future Scheduled Test COLONOSCOPY SCREENING [facility] [code = COLONOSCOPY SCREENING] Future Scheduled Test SHINGLES VACCINES (#1) [facility] [code = SHINGLES VACCINES (#1)] Future Scheduled Test COVID-19 VACCINE ([address] [place] [address] Moderna 2-dose series) [code = COVID-19 VACCINE (2 - Moderna 2-dose series)] Future Scheduled Test INFLUENZA VACCINE [code [facility] = INFLUENZA VACCINE] Future Scheduled Test Hepatitis C screening [facility] (procedure) [code = 669288092] Future Scheduled Test COLONOSCOPY SCREENING [facility] [code = COLONOSCOPY SCREENING] Future Scheduled Test SHINGLES VACCINES (#1) [facility] [code = SHINGLES VACCINES (#1)] Future Scheduled Test COVID-19 VACCINE ([address] [place] [address] Moderna 2-dose series) [code = COVID-19 VACCINE (2 - Moderna 2-dose series)] Future Scheduled Test INFLUENZA VACCINE [code [facility] = INFLUENZA VACCINE] Encounters Start End Encounter Admission Attending Care Care Encounter Source Date/Time Date/Time Type Type Clinicians Facility Department ID 2020-12-06 Outpatient SYSTEM, [facility] [id number] 13:34:09 PROVIDER Reginaldnicole soler 2020-11-02 [facility] [id number] [place] 09:33:42 [facility] 2020-10-26 [facility] [id number] [place] 08:53:43 [facility] 2020-12-22 2020-12-22 Telephone Kalyan 1.2.840.1 [id number] Methodi 00:00:00 00:00:[address] 3.430.2.7 Hospit a .3.255907 l .8 2020-12-22 2020-12-22 Telephone Kalyan, 1.2.840.1 [id number] [id number] Methodi 00:00:00 00:00:[address] 3.430.2.7 Hospit a .3.260608 l .8 2020-11-02 2020-11-02 Office LAKHWINDER Hernandez 6400 1.2.905.492 6274 48195 09:33:29 15:28:[address] 350.1.13.58 9.2.7.2.686 276.2845781 5 2020-08-12 2020-08-12 Orders Rodriguez, 1.2.840.1 [id number] Methodi 00:00:00 00:00:00 Only Claudine 03825.1.[address] 3.430.2.7 Hospit a .3.496567 l .8 2020-08-12 2020-08-12 Orders Rodriguez, 1.2.840.1 [id number] Methodi 00:00:00 00:00:00 Only Claudine 56720.1.[address] 3.430.2.7 Hospit a .3.029556 l .8 2020-07-14 2020-07-14 Office Tatum 1.2.840.1 [id number] 21 [id number] Methodi 13:20:45 14:04:45 Visit Gael Salas.1.[address] 3.430.2.7 Hospit a .3.219322 l .8 2020-07-14 2020-07-14 Office Tatum 1.2.840.1 [id number] Methodi 13:20:45 14:04:45 Visit Gael Salas.1.[address] 3.430.2.7 Hospit a .3.544311 l .8 2020-07-14 2020-07-14 Travel 1.2.840.1 1.2.250.638 7033 [id number] Methodi 00:00:00 00:00:[address] 3.430.2.7 0.2.7.3.698 Ho spita .3.514582 084.8 l .8 2020-07-14 2020-07-14 Travel 1.2.840.1 1.2.875.934 7707 609396 Methodi 00:00:00 00:00:[address] 3.430.2.7 0.2.7.3.698 Ho spita .3.762490 084.8 l .8 2020-06-23 2020-06-23 [facility], 1.2.840.1 [id number] Methodi 00:00:00 00:00:00 Only Gael R. 96585.1.[address] 3.430.2.7 Hospit a .3.038145 l .8 2020-06-23 2020-06-23 [facility], 1.2.840.1 [id number] Methodi 00:00:00 00:00:00 Only Gael R. 72538.1.[address] 3.430.2.7 Hospit a .3.786511 l .8 2020-06-21 2020-06-21 [facility], 1.2.840.1 [id number] 2 [id number] Methodi 06:11:00 13:23:00 Encounter Geal R. 29313.1.1 579 [address] 3.430.2.7 Hospit a .3.342213 l .8 2020-06-21 2020-06-21 [facility], 1.2.840.1 [id number] 2 [id number] Methodi 06:11:00 13:23:00 Encounter Gael R. 48075.1.1 579 s t 3.430.2.7 Hospit a .3.990743 l .8 2020-06-21 2020-06-21 [facility] 1.2.840.1 [id number] 21 [id number] Methodi 07:15:00 09:30:00 Gael Chan [address]504.1.[address] 3.430.2.7 Hospit a .3.949253 l .8 2020-06-21 2020-06-21 Surgery Tatum, 1.2.840.1 [id number] 21 [id number] Methodi 07:15:00 09:30:00 Gael Chan 95544.1.[address] 3.430.2.7 Hospit a .3.645183 l .8 2020-06-21 2020-06-21 Anesthesia Neptali Valenzuela 1.2.840 .1 [id number] Methodi 07:15:00 08:51:00 Event Darlene Mario 66398.1.[address] 3.430.2.7 Hospit a .3.162938 l .8 2020-06-21 2020-06-21 Anesthesia Neptali Valenzuela 1.2.840 .1 [id number] Methodi 07:15:00 08:51:00 Event Darlene Mario 47793.1.[address] 3.430.2.7 Hospit a .3.175218 l .8 2020-06-21 2020-06-21 Travel 1.2.840.1 1.2.393.183 9872 [id number] Methodi 00:00:00 00:00:[address] 3.430.2.7 0.2.7.3.698 Ho spita .3.573914 084.8 l .8 2020-06-21 2020-06-21 Travel 1.2.840.1 1.2.360.308 6140 057641 Methodi 00:00:00 00:00:[address] 3.430.2.7 0.2.7.3.698 Ho spita .3.083927 084.8 l .8 2020-06-16 2020-06-16 Pre-Admiss Tatum, 1.2.840.1 [id number] Methodi 15:04:23 16:04:23 ion Gael R. 78164.1.[address] Testing 3.430.2.7 Hospit a .3.928134 l .8 2020-06-16 2020-06-16 Pre-Admiss Tatum, 1.2.840.1 [id number] Methodi 15:04:23 16:04:23 ion Gael R. 44154.1.[address] Testing 3.430.2.7 Hospit a .3.716975 l .8 2020-06-16 2020-06-16 Travel 1.2.840.1 1.2.240.499 8299 685066 Methodi 00:00:00 00:00:[address] 3.430.2.7 0.2.7.3.698 Ho spita .3.729275 084.8 l .8 2020-06-16 2020-06-16 Travel 1.2.840.1 1.2.747.504 9447 341769 Methodi 00:00:00 00:00:[address] 3.430.2.7 0.2.7.3.698 Ho spita .3.677828 084.8 l .8 2020-06-10 2020-06-10 Orders Schriner, 1.2.840.1 [id number] 2099 [id number] Methodi 00:00:00 00:00:00 Only Leana 46979.1.[address] Cheryl 3.430.2.7 Hosp rena .3.154523 l .8 2020-06-10 2020-06-10 Orders Schriner, 1.2.840.1 [id number] 2099 [id number] Methodi 00:00:00 00:00:00 Only Leana 81988.1.[address] Cheryl 3.430.2.7 Hosp rena .3.152116 l .8 2020-06-08 2020-06-08 Office Schriner, 1.2.840.1 [id number] 2099 [id number] Methodi 13:58:59 15:27:04 Visit Leana 19198.1.[address] Cheryl 3.430.2.7 Hosp rena .3.892164 l .8 2020-06-08 2020-06-08 Office Schriner, 1.2.840.1 [id number] 2099 [id number] Methodi 13:58:59 15:27:04 Visit Leana 83430.1.[address] Cheryl 3.430.2.7 Hosp rena .3.966195 l .8 2020-06-08 2020-06-08 Travel 1.2.840.1 1.2.578.879 2732 398110 Methodi 00:00:00 00:00:[address] 3.430.2.7 0.2.7.3.698 Ho spita .3.610505 084.8 l .8 2020-06-08 2020-06-08 Travel 1.2.840.1 1.2.532.586 7940 543253 Methodi 00:00:00 00:00:[address] 3.430.2.7 0.2.7.3.698 Ho spita .3.269992 084.8 l .8 2020-05-16 2020-05-16 Prep for Schriner, 1.2.840.1 [id number] 796 [id number] Methodi 00:00:00 00:00:00 Surgery Leana 97779.1.[address] Cheryl 3.430.2.7 Hosp rena .3.371282 l .8 2020-05-16 2020-05-16 Prep for Schriner, 1.2.840.1 [id number] Methodi 00:00:00 00:00:00 Surgery Leana 87378.1.[address] Cheryl 3.430.2.7 Hosp rena .3.979491 l .8 2020-05-10 2020-05-10 Documentat Provider, 1.2.840.1 [id number] 2 [id number] Methodi 00:00:00 00:00:00 ion Unknown 12623.1.[address] 3.430.2.7 Hospit a .3.696387 l .8 2020-05-10 2020-05-10 Orders Rodriguez, 1.2.840.1 [id number] 75468 Methodi 00:00:00 00:00:00 Only Claudine 20704.1.[address] 3.430.2.7 Hospit a .3.120985 l .8 2020-05-10 2020-05-10 Documentat Provider, 1.2.840.1 [id number] 2 [id number] Methodi 00:00:00 00:00:00 ion Unknown 52183.1.[address] 3.430.2.7 Hospit a .3.485121 l .8 2020-05-10 2020-05-10 Orders Rodriguez, 1.2.840.1 [id number] Methodi 00:00:00 00:00:00 Only Claudine 78201.1.[address] 3.430.2.7 Hospit a .3.835039 l .8 2020-05-04 2020-05-04 Office Tatum, 1.2.840.1 [id number] Methodi 10:12:27 12:33:12 Visit Gael Figueroa50.1.[address] 3.430.2.7 Hospit a .3.075400 l .8 2020-05-04 2020-05-04 Office Tatum, 1.2.840.1 [id number] Methodi 10:12:27 12:33:12 Visit Gael Chan 27233.1.[address] 3.430.2.7 Hospit a .3.247047 l .8 2020-05-04 2020-05-04 Travel 1.2.840.1 1.2.412.962 2895 118624 Methodi 00:00:00 00:00:[address] 3.430.2.7 0.2.7.3.698 Ho spita .3.201219 084.8 l .8 2020-05-04 2020-05-04 Travel 1.2.840.1 1.2.701.801 1945 328089 Methodi 00:00:00 00:00:[address] 3.430.2.7 0.2.7.3.698 Ho spita .3.645587 084.8 l .8 2020-02-11 2020-02-11 Orders Biggs, 1.2.840.1 562 Methodi 00:00:00 00:00:00 Only Pleshette 02120.1.[address] 3.430.2.7 Hospit a .3.265751 l .8 2020-02-11 2020-02-11 Orders Biggs, 1.2.840.1 [id number] Methodi 00:00:00 00:00:00 Only Ples[place]te 20197.1.[address] 3.430.2.7 Hospit a .3.480007 l .8 2020-01-21 2020-01-21 Office Lonny Hammer 1.2.840.1 [id number] Methodi 13:29:36 14:07:[address] 3.430.2.7 Hospit a .3.224267 l .8 2020-01-21 2020-01-21 Office Lonny Hammer 1.2.840.1 [id number] Methodi 13:29:36 14:07:[address] 3.430.2.7 Hospit a .3.715168 l .8 2020-01-21 2020-01-21 Travel 1.2.840.1 1.2.078.931 0687 367820 Methodi 00:00:00 00:00:[address] 3.430.2.7 0.2.7.3.698 Ho spita .3.663629 084.8 l .8 2020-01-21 2020-01-21 Travel 1.2.840.1 1.2.888.308 6913 093788 Methodi 00:00:00 00:00:[address] 3.430.2.7 0.2.7.3.698 Ho spita .3.489051 084.8 l .8 Results Test Description Test Time Test Comments Results Result Comments Source Surgical pathology request 2020-06-24 16:08:47 Test Item Value Reference Range Interpretation Comme nts Case number (test code = 4926620) [id number] Surgical pathology report (test code = See link below for PDF Lab R eport 2255) Result status (test code = 8539974) This is Final Report for [id number] [facility] [id number] 16:08:47 Test Item Value Reference Range Interpretation Comments Case number (test code = [id number]) Surgical pathology See link below for report (test code = PDF Lab Report 2255) Result status (test code This is Final Report = [id number]) for [id number] [facility]2021-03-09 13:30:00Anitha Alicia 06/21/2020 7:57 AMAirway Date/Time: 06/21/2020 7:30 AM Location: OR Performed by: RUFINA/Nisha/RUFINA/AA: Anitha Aliciauthorized by: Neptali Valenzuela MD Urgency: ElectiveDifficult Airway: No Preoxygenated with 100% O2: Yes C-spine Precautions Maintained Throughout: Yes Mask Ventilation: Easy maskFinal Airway Type: Supraglottic airwayFinal LMA: I-GelLMA Size: 5Number of Attempts at Approach: 1 atraumaticMethodist [id number] 13:30:00Anitha Alicia 06/21/2020 7:57 AMAirway Date/Time: 06/21/2020 7:30 AM Location: OR Performed by: CORNER CUTTER MACHINE OPERATOR/Daniellet/CORNER CUTTER MACHINE OPERATOR/AA: Anitha Aliciauthorized by: Neptali Valenzuela MD Urgency: ElectiveDifficult Airway: No Preoxygenated with 100% O2: Yes C-spine Precautions Maintained T hroughout: Yes Mask Ventilation: Easy maskFinal Airway Type: Supraglottic airwayFinal LMA: I-GelLMA Size: 5Number of Attempts at Approach: 1 atraumatic [facility] [id number] 13:07:00Neptali Valenzuela MD 06/21/2020 7:09 AMSpinal Block [...] oximetry and heart rate Approach: Midline Interspace: L2- 3Injection Technique: Single injectionNeedle: Needle Type: Quincke Needle Gauge: 22 GNumber ofattempts: 1Assessment: Block assessment: No apparent complications and patient tolerated procedure well Post procedure: Patient returned to supine positionMedications AdministeredBupivacaine 0.75% PF (mL), 1 mLMethodist HospitalSpinal [id number] 13:07:00Neptali Valenzuela MD 06/21/2020 7:09 AMSpinal Block Date/Time: 06/21/2020 7:07 AM Patient Location: Pre-opStart Time: 06/21/2020 7:05 AMEnd Time: 06/21/2020 7:07 AMReason for Block: at surgeon'srequest Performed by: anesthesiologistAnesthesiologist: Neptali Valenzuela, MDAuthorized by: Neptali Valenzuela MD Preprocedure: patient identified, IV checked, site and side verified, risks and benefits discussed, procedure verified, surgical consent complete, patient position confirmed, monitors and equipment checked, pre-op evaluation complete and timeout performed prior to procedure Spinal Block: Patient Position: Sitting Prep: Betadine and patient draped Monitoring: Blood pressure monitoring, continuous pulse oximetry and heart rate Approach: Midline Interspace: L2- 3Injection Technique: Single injectionNeedle: Needle Type: Quincke Needle Gauge: 22 GNumber ofattempts: 1Assessment: Block assessment: No apparent complications and patient tolerated procedure well Post procedure: Patient returned to supine positionMedications AdministeredBupivacaine 0.75% PF (mL), 1 mLMethodist HospitalCOVID-19 qualitative [id number] 06:51:42 Test Item Value Reference Range Interpretation Comments Interpretation (test Negative results do code = 1552318) not preclude 2019-nCoV infection and should not be used as the sole basis for treatment or other patient management decisions. Negative results must be combined with clinical observations, patient history, and epidemiological information. COVID-19 qualitative Not-Detected Not-Detected RT-PCR result (test code = 24199-1) COVID-19 qualitative See link below for C ase Number: RT-PCR (test code = PDF Lab Report [id number]) [facility] qualitative [id number] 06:51:42 Test Item Value Reference Range Interpretation Comments Interpretation (test Negative results do code = 0236331) not preclude 2019-nCoV infection and should not be used as the sole basis for treatment or other patient management decisions. Negative results must be combined with clinical observations, patient history, and epidemiological information. COVID-19 qualitative Not-Detected Not-Detected RT-PCR result (test code = 96713-0) COVID-19 qualitative See link below for C ase Number: RT-PCR (test code = PDF Lab Report [id number]) [facility] Pre/Post [id number] 22:30:41 Test Item Value Reference Range Interpretation Comments Ventricular rate (test code = 253) Atrial rate (test code = 255) MN interval (test code = 266) QRSD interval [...] Lanier MD ([id number]) on 06/16/2020 4:30:[address] [facility] [id number] 22:30:41 Test Item Value Reference Range Interpretation Comments Ventricular rate (test code = 253) Atrial rate (test code = 255) MN interval (test code = 266) QRSD interval [...] Lanier MD ([id number]) on 06/16/2020 4:30:[address] [facility]
[2020-12-27 15:50] LABS: Urine Blood Negative (Negative); Urine Glucose Negative (Negative); Urine Protein Negative (Negative)
--- NOTE | 2020-12-27 15:53 | RAD REPORT ---
EXAM DESCRIPTION: MRI - Brain Wo Cont - 12/27/2020 3:32 pm CLINICAL HISTORY: Facial drooping, anxiety COMPARISON: None. TECHNIQUE: Sagittal T1-weighted images were obtained along with PD/heavily T2-weighted and T2-FLAIR images. Axial DWI and ADC mapping sequences were also obtained along with coronal heavily T2-weighted images were obtained. FINDINGS: No intracranial hemorrhage, mass or acute infarction. There is no edema or shift of midlin e structures. No extra-axial fluid collections. Mild chronic small vessel ischemic changes. Signal vo ids are seen as a normal finding in the major intracranial vessels. Mastoid air cells and paranasal sinuses are clear. Nonaggressive appearing right frontal calvarium le vik. IMPRESSION: No acute intracranial abnormality. Specifically, no evidence of acute infarct.
--- NOTE | 2020-12-27 16:11 | RAD REPORT ---
EXAM DESCRIPTION: RAD - Chest Single View - 12/27/2020 3:37 pm CLINICAL HISTORY: COUGH COMPARISON: No comparisons FINDINGS: Lines: Right subclavian approach PICC with tip overlying the SVC in satisfactory position. Lungs: No evidence of edema or pneumonia. Pleural: No significant pleural effusions or pneumothorax. Cardiac: The heart size is within normal limits. Bones: No acute fractures. Other: IMPRESSION: No acute cardiopulmonary disease.
[2020-12-27] MEDS ORDERED: NA CHLORIDE 0.9% 500 ML ONE (16:19)
[2020-12-27 16:20] LABS: ALT/SGPT 53 U/L (12-78); AST/SGOT 16 U/L (15-37); Albumin 3.3 g/dL (3.4-5.0); Alkaline Phosphatase 110 U/L (45-117); BUN Blood Urea Nitrogen 9 mg/dL (7-18); Bicarbonate 29 mmol/L (21-32); Bilirubin Total 0.3 mg/dL (0.2-1.0); Glucose Level 92 mg/dL (74-106); Potassium 3.6 mmol/L (3.5-5.1); Protein, Total 6.4 g/dL (6.4-8.2); Sodium Level 133 mmol/L (136-145)
--- NOTE | 2020-12-27 16:46 | ER ---
Nurse's Notes [facility] Name: Tahir Jackson Age: 60 yrs Sex: Male : 1960 Arrival Date: 12/27/2020 Time: 14:31 Bed 30 Private MD: Diagnosis: Pro's palsy Presentation: 12/27 14:40 Chief complaint: Patient states: "I was diagnosed with Pro's palsy yesterday but I aa5 want a second opinion". Pt denies numbness/tingling. Pt c/o facial droop. Coronavirus screen: At this time, the client does not indicate any symptoms associated with coronavirus-19. Ebola Screen: Patient negative for fever greater than or equal to 101.5 degrees Fahrenheit, and additional compatible Ebola Virus Disease symptoms. Onset of symptoms was December 2020. 14:40 Method Of Arrival: Ambulatory aa5 14:41 Initial Sepsis Screen: Does the patient meet any 2 criteria? No. Patient's initial aa5 sepsis screen is negative. Does the patient have a suspected source of infection? No. Patient's initial sepsis screen is negative. Risk Assessment: Do you want to hurt yourself or someone else? Patient reports no desire to harm self or others. 14:41 Acuity: ROMULO 3 aa5 Historical: - Allergies: 14:39 No Known Allergies; aa5 - PMHx: 14:39 Chemotherapy; Lymphoma; enlarged prostate; aa5 - Immunization history:: Client reports receiving the 2nd dose of the Covid vaccine. - Social history:: Smoking status: Patient denies any tobacco usage or history of. - Family history:: not pertinent. Screenin:58 Abuse screen: Denies threats or abuse. Denies injuries from another. Nutritional ld1 screening: No deficits noted. Tuberculosis screening: No symptoms or risk factors identified. Fall Risk None identified. Assessment: 15:00 General: Appears in no apparent distress. comfortable, Behavior is calm, cooperative, ld1 appropriate for age. 15:00 Pain: Denies pain. Neuro: Level of Consciousness is awake, alert, obeys commands, ld1 Oriented to person, place, time, situation. Cardiovascular: Capillary refill < 3 seconds Patient's skin is warm and dry. Respiratory: Airway is patent Respiratory effort is even, unlabored, Respiratory pattern is regular, symmetrical. GI: Abdomen is flat, non-distended. : No signs and/or symptoms were reported regarding the genitourinary system. EENT: No signs and/or symptoms were reported regarding the EENT system. Derm: No signs and/or symptoms reported regarding the dermatologic system. Musculoskeletal: No signs and/or symptoms reported regarding the musculoskeletal system. Vital Signs: 14:41 BP 124 / 83; Pulse 78; Resp 18 S; Temp 97.0(TE); Pulse Ox 100% on R/A; Weight 90.26 kg aa5 (R); Height 5 ft. 8 in. (172.72 cm) (R); Pain 0/10; 15:58 BP 128 / 86; Pulse 80; Resp 18; Pulse Ox 100% on R/A; Pain 0/10; ld1 14:41 Body Mass Index 30.26 (90.26 kg, 172.72 cm) aa5 ED Course: 14:31 Patient arrived in ED. ds1 14:39 Arm band placed on. aa5 14:42 Triage completed. aa5 14:43 Huang Marquez MD is Attending Physician. osmin 15:31 Brain Wo Cont In Process Unspecified. EDMS 15:37 Chest Single View XRAY In Process Unspecified. EDMS 15:57 Comprehensive Metabolic Panel Sent. ld1 15:57 CBC with Diff Sent. ld1 15:58 Patient has correct armband on for positive identification. Placed in gown. Bed in low ld1 position. Call light in reach. Side rails up X2. monitor technician on. Pulse ox on. NIBP on. Door closed. Noise minimized. Warm blanket given. 15:58 No provider procedures requiring assistance completed. Inserted saline lock: 20 gauge ld1 in left antecubital area, using aseptic technique. Blood collected. 16:45 Pavan Mack MD is Referral Physician. osmin 17:27 IV discontinued, intact, bleeding controlled, No redness/swelling at site. ld1 Administered Medications: 15:58 Drug: NS 0.9% 500 ml Route: IV; Rate: bolus; Site: left antecubital; ld1 17:12 Follow up: Response: No adverse reaction; IV Status: Completed infusion; IV Intake: ld1 500ml 17:11 Drug: Aspirin 81 mg Route: PO; ld1 17:12 Follow up: Response: No adverse reaction ld1 17:11 Drug: Valtrex (valACYclovir) 1000 mg Route: PO; ld1 17:12 Follow up: Response: No adverse reaction ld1 17:11 Drug: predniSONE 60 mg Route: PO; ld1 17:12 Follow up: Response: No adverse reaction ld1 Intake: 17:12 IV: 500ml; Total: 500ml. ld1 Outcome: 16:45 Discharge ordered by MD. solorio 17:27 Discharged to home ambulatory. ld1 17:27 Condition: stable 17:27 Discharge instructions given to patient, Instructed on discharge instructions, follow up and referral plans. Demonstrated understanding of instructions, follow-up care. 17:27 Patient left the ED. ld1 Signatures: Dispatcher [employer] EDMS Huang Marquez MD MD cha Sanford, Demi ds1 Lucy Keller, RN RN aa5 Teodora Le RN RN ld1
--- NOTE | 2020-12-27 16:46 | EDPHYS ---
Physician Documentation [facility] Name: Tahir Jackson Age: 60 yrs Sex: Male : 1960 Arrival Date: 12/27/2020 Time: 14:31 Bed 30 Private MD: DELVIN Physician Huang Marquez HPI: 12/27 16:39 This 60 yrs old Male presents to ER via Ambulatory with complaints of Facial osmin Droop. 16:39 The patient presents to the emergency department with weakness of the left side of the osmin face, that is moderate. Onset: The symptoms/episode began/occurred 3 day(s) ago. Context: occurred at an unknown location. Associated signs and symptoms: The patient has no apparent associated signs or symptoms. Severity of symptoms: At their worst the symptoms were mild moderate in the emergency department the symptoms are unchanged. Severity of symptoms: At their worst the symptoms were. Patient's baseline: Neuro: alert and fully oriented. Current symptoms: paralysis or paresis, of the forehead, left cheek and left jaw, that is mild. The patient has not experienced similar symptoms in the past. Historical: - Allergies: 14:39 No Known Allergies; aa5 - PMHx: 14:39 Chemotherapy; Lymphoma; enlarged prostate; aa5 - Immunization history:: Client reports receiving the 2nd dose of the Covid vaccine. - Social history:: Smoking status: Patient denies any tobacco usage or history of. - Family history:: not pertinent. ROS: 16:39 Constitutional: Negative for fever, chills, and weight loss, Eyes: Negative for injury, osmin pain, redness, and discharge, ENT: Negative for injury, pain, and discharge, Neck: Negative for injury, pain, and swelling, Cardiovascular: Negative for chest pain, palpitations, and edema, Respiratory: Negative for shortness of breath, cough, wheezing, and pleuritic chest pain, Abdomen/GI: Negative for abdominal pain, nausea, vomiting, diarrhea, and constipation, Back: Negative for injury and pain, : Negative for injury, bleeding, discharge, and swelling, MS/Extremity: Negative for injury and deformity, Skin: Negative for injury, rash, and discoloration, Psych: Negative for depression, anxiety, suicide ideation, homicidal ideation, and hallucinations, Allergy/Immunology: Negative for hives, rash, and allergies, Endocrine: Negative for neck swelling, polydipsia, polyuria, polyphagia, and marked weight changes, Hematologic/Lymphatic: Negative for swollen nodes, abnormal bleeding, and unusual bruising. 16:39 Neuro: Positive for weakness, of the forehead, left ear, left cheek and left jaw. Exam: 16:39 Constitutional: This is a well developed, well nourished patient who is awake, alert, osmin and in no acute distress. Head/Face: Normocephalic, atraumatic. Eyes: Pupils equal round and reactive to light, extra-ocular motions intact. Lids and lashes normal. Conjunctiva and sclera are non-icteric and not injected. Cornea within normal limits. Periorbital areas with no swelling, redness, or edema. ENT: Nares patent. No nasal discharge, no septal abnormalities noted. Tympanic membranes are normal and external auditory canals are clear. Oropharynx with no redness, swelling, or masses, exudates, or evidence of obstruction, uvula midline. Mucous membranes moist. Neck: Trachea midline, no thyromegaly or masses palpated, and no cervical lymphadenopathy. Supple, full range of motion without nuchal rigidity, or vertebral point tenderness. No Meningismus. Chest/axilla: Normal chest wall appearance and motion. Nontender with no deformity. No lesions are appreciated. Cardiovascular: Regular rate and rhythm with a normal S1 and S2. No gallops, murmurs, or rubs. Normal PMI, no JVD. No pulse deficits. Respiratory: Lungs have equal breath sounds bilaterally, clear to auscultation and percussion. No rales, rhonchi or wheezes noted. No increased work of breathing, no retractions or nasal flaring. Abdomen/GI: Soft, non-tender, with normal bowel sounds. No distension or tympany. No guarding or rebound. No evidence of tenderness throughout. Back: No spinal tenderness. No costovertebral tenderness. Full range of motion. Male : Normal genitalia with no discharge or lesions. Skin: Warm, dry with normal turgor. Normal color with no rashes, no lesions, and no evidence of cellulitis. MS/ Extremity: Pulses equal, no cyanosis. Neurovascular intact. Full, normal range of motion. Psych: Awake, alert, with orientation to person, place and time. Behavior, mood, and affect are within normal limits. 16:39 Neuro: Orientation: is normal, appropriate for stated age, no acute changes, Mentation: is normal, appropriate for stated age, no acute changes, Memory: is normal, appropriate for stated age, no acute changes, Cranial nerves: grossly normal, is grossly normal based on the patient's age, facial droop noted on left, with forehead involved. Cerebellar function: is grossly normal, is grossly normal based on the patient's age, no acute changes, Motor: is grossly normal based on the patient's age, no acute changes, moves all fours, strength is normal, strength is 5/5 in all extremities, Sensation: is normal, no obvious gross deficits, appropriate no acute changes, Gait: is steady, appropriate for age, Deep tendon reflexes are 2+ (normal) in the bilateral brachioradialis, bicep, tricep and patellar and Achilles tendons, Babinski testing is normal, seizure activity, is not displayed by the patient. 16:43 ECG was reviewed by the Attending Physician. [facility] Vital Signs: 14:41 BP 124 / 83; Pulse 78; Resp 18 S; Temp 97.0(TE); Pulse Ox 100% on R/A; Weight 90.26 kg aa5 (R); Height 5 ft. 8 in. (172.72 cm) (R); Pain 0/10; 15:58 BP 128 / 86; Pulse 80; Resp 18; Pulse Ox 100% on R/A; Pain 0/10; ld1 14:41 Body Mass Index 30.26 (90.26 kg, 172.72 cm) aa5 MDM: 14:43 Patient medically screened. [facility] 16:43 Data reviewed: vital signs, nurses notes, lab test result(s), EKG, radiologic studies, [facility] MRI, plain films. Data interpreted: panel monitor: rate is 80 beats/min, rhythm is regular, Pulse oximetry: is not applicable for this patient encounter. is 100 %. Interpretation: normal. Test interpretation: by ED physician or midlevel provider: ECG, plain radiologic studies. Counseling: I had a detailed discussion with the patient and/or guardian regarding: the historical points, exam findings, and any diagnostic results supporting the discharge/admit diagnosis, lab results, radiology results, the need for outpatient follow up, for definitive care, a family practitioner, a neurologist. 12/27 14:47 Order name: CBC with Diff [facility] 12/27 14:47 Order name: Comprehensive Metabolic Panel; Complete Time: 16:37 [facility] 12/27 14:47 Order name: Chest Single View XRAY; Complete Time: 16:37 [facility] 12/27 15:20 Order name: Brain Wo Cont; Complete Time: 16:37 EDMS 12/27 15:50 Order name: Urine Dipstick-Ancillary; Complete Time: 16:37 EDMS 12/27 14:47 Order name: EKG; Complete Time: 14:48 [facility] 12/27 14:47 Order name: EKG - Nurse/Tech; Complete Time: 15:57 [facility] 12/27 14:47 Order name: Urine Dipstick-Ancillary (obtain specimen); Complete Time: 15:57 [facility] EC:43 Rate is 74 beats/min. Rhythm is regular. QRS [place] is Normal. LA interval is normal. QRS osmin interval is normal. QT interval is normal. No Q waves. T waves are Normal. No ST changes noted. Clinical impression: Normal ECG and No evidence of ischemia. Interpreted by me. Reviewed by me. Administered Medications: 15:58 Drug: NS 0.9% 500 ml Route: IV; Rate: bolus; Site: left antecubital; ld1 17:12 Follow up: Response: No adverse reaction; IV Status: Completed infusion; IV Intake: ld1 500ml 17:11 Drug: Aspirin 81 mg Route: PO; ld1 17:12 Follow up: Response: No adverse reaction ld1 17:11 Drug: Valtrex (valACYclovir) 1000 mg Route: PO; ld1 17:12 Follow up: Response: No adverse reaction ld1 17:11 Drug: predniSONE 60 mg Route: PO; ld1 17:12 Follow up: Response: No adverse reaction ld1 Disposition Summary: 12/27/20 16:45 Discharge Ordered Location: Home osmin Problem: new osmin Symptoms: have improved osmin Condition: Stable osmin Diagnosis - Pro's palsy osmin Followup: osmin - With: Private Physician - When: 2 - 3 days - Reason: Recheck today's complaints, Continuance of care, Re-evaluation by your physician Followup: osmin - With: Pavan Mack MD - When: 2 - 3 days - Reason: Recheck today's complaints, Re-evaluation by your physician Discharge Instructions: - Discharge Summary Sheet osmin - Pro Palsy, Adult osmin - Aspirin and Your Heart osmin Forms: - Medication Reconciliation Form osmin - Thank You Letter osmin - Antibiotic Education osmin - Prescription Opioid Use osmin Prescriptions: - Artificial Tears (PF) - instill 1 application by OPHTHALMIC route 6 times per day; 1 Applicator; osmin Refills: 0, Product Selection Permitted - Valtrex 1 gram Oral tablet - take 1 tablet by ORAL route 3 times per day; 21 tablet; Refills: 0, Product osmin Selection Permitted - Prednisone 20 mg Oral Tablet - take 2 tablets by ORAL route once daily for 5 days; 10 tablet; Refills: 0, osmin Product Selection Permitted Signatures: Dispatcher [employer] EDHuang Rios MD MD cha Calderon, Audri RN RN aa5 Teodora Le RN RN ld1 Corrections: (The following items were deleted from the chart) 15:20 14:48 MR STROKE PROTOCOL+MRI.RAD.BRZ ordered. EDKY EDMS
[2020-12-27 16:47] LABS: Absolute Lymphocytes (CBC) 0.7 K/uL (0.7-4.9); Basophils % 0.5 % (0-1.3); Lymphocytes % 12.1 % (15.3-44.8); MPV 8.6 fL (7.6-11.3); RBC Red Blood Cell Count 3.39 M/uL (4.33-5.43)
[2020-12-27] MEDS ORDERED: ASPIRIN EC 81 MG TAB PO ONE (17:32)
[2020-12-27] MEDS ORDERED: predniSONE 20 MG TAB ONE (17:32)
[2020-12-27] MEDS ORDERED: VALACYCLOVIR 500 MG TAB ONE (17:33)
[2020-12-27 18:12] VITALS: TEMP 97; O2SAT 100
[2020-12-27 18:14] VITALS: BP 128/86
[2020-12-27 21:44] LABS: Blood Morphology Comment NOT SEEN (NOT SEEN); Platelet Estimate ADEQ; White Blood Cell Scan OK (OK)
--- NOTE | 2020-12-28 08:16 | EKG ---
Test Date: 2020-12-27 Test Time: 15:43:51 Hide Dyer: KALA MEASUREMENT RESULTS: Intervals: Rate: 74 ME: 174 QRSD: 88 QT: 378 QTc: 419 [place]: P: 41 ME: 174 QRS: 4 T: 53 INTERPRETIVE STATEMENTS: Normal sinus rhythm Nonspecific ST abnormality Abnormal ECG No previous ECG available for comparison Electronically Signed On 12-28-20 08:14:14 CDT by Rush Escoto
== END 2020-12-27 17:27 | disposition home or self-care (01) ==
LOC: ER 14:26
DX: G51.0 Bell's palsy (principal)
CPT/HCPCS: 93005; 85025; 36415; 81003; 80053; 71045; 70551; 96360; 99284; J7040; J7512